=== PATIENT | female | born 1985 | race Caucasian/White ===

== ENCOUNTER 2017-08-12 08:32 | Emergency (ER) | payer OTHER ==
[2017-08-12 08:42] VITALS: BP 120/83; PULSE 92; TEMP 98; BMI 22.2
--- NOTE | 2017-08-12 09:25 | PDOC ---
History of Present Illness - General Chief Complaint: Bite Stated Complaint: CAT BITE Time Seen by Provider: 08/12/17 09:04 History Source: Patient Exam Limitations: No Limitations - History of Present Illness Initial Comments: 08/12/17 15:15 My chief complaint: Cat bite left index finger History of present illness: Patient is a 32 year old female with no significant medical history here today sent from the animal [facility] due to having a cat bite left index finger at 5 AM today. Patient reports that she is up-to-date with tetanus. Patient has a superficial puncture wound to her left proximal dorsal index finger that she washed out with antibacterial soap and water thoroughly. 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 Patient denies any difficulty bending her left index finger. Occurred: reports: this morning Severity: reports: mild Pain Location: reports: upper extremity (rt. index finger) Method of Injury: Yes: other (cat bite ) Modifying Factors: improves with: None Loss of Consciousness: no loss of consciousness Associated Symptoms (Fall): denies symptoms Past History - Past Medical History Allergies/Adverse Reactions: Allergies Allergy/AdvReac Type Severity Reaction Status Date / Time No Known Allergies Allergy Verified 08/12/17 08:35 Home Medications: Ambulatory Orders Amoxicillin - [Amoxicillin 875mg Tablet -] 875 mg PO BID #14 tab 08/12/17 Asthma: Yes COPD: No - Suicide/Smoking/Psychosocial Hx Smoking History: Never smoked Hx Alcohol Use: Yes (SOCIAL) Drug/Substance Use Hx: No Review of Systems - Review of Systems Able to Perform ROS?: Yes Constitutional: No: Symptoms Reported HEENTM: No: Symptoms Reported Respiratory: No: Symptoms reported Cardiac (ROS): No: Symptoms Reported ABD/GI: No: Symptoms Reported : No: Symptoms Reported Musculoskeletal: No: Symptoms Reported Integumentary: Yes: Other (tiny puncture wound rt. index proximal aspect dorsal ) Neurological: No: Symptoms reported *Physical Exam - Vital Signs Last Vital Signs Temp Pulse Resp BP Pulse Ox 98.0 F 92 H 20 120/83 98 08/12/17 08:33 08/12/17 08:33 08/12/17 08:33 08/12/17 08:33 08/12/17 08:33 - Physical Exam General Appearance: Yes: Appropriately Dressed Comments:: 08/12/17 09:22 radial pulse 4 + rt/ Extremity: positive: Normal Capillary Refill, Normal Range of Motion (rt. index finger ). negative: Normal Inspection, Tender Integumentary: positive: Other (rt. index puncture penpoint size proxima dorsal aspect superficial ) Neurologic: positive: Respond to painful stimul (rt. index finger ) Procedures - Consent Consent obtained: From Patient - Additional Procedures Progress: 08/12/17 15:19 Thoroughly irrigated left index finger with normal saline 0.9% Band-Aid applied Medical Decision Making - Medical Decision Making 08/12/17 15:18 Patient is a 32 year old female with no significant medical history here today sent from the animal specialty [facility] due to having a cat bite left index finger at 5 AM today. Patient reports that she is up-to-date with tetanus. Patient has a superficial puncture wound to her left proximal dorsal index finger that she washed out with antibacterial soap and water thoroughly. 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 Patient denies any difficulty bending her left index finger. 'left index finger cat bite PLAN: Her of cat called she reports that cat was vaccinated for rabies 3 years ago last time however never leaves the house is a house cat Will discharge patient on Augmentin 875/125 twice a day for 7 days 08/12/17 15:19 [facility] health form completed *DC/Admit/Observation/Transfer Diagnosis at time of Disposition: Cat bite of index finger Qualifiers: Encounter type: initial encounter Qualified Code(s): S61.258A - Open bite of other finger without damage to nail, initial encounter - Discharge Dispostion Disposition: HOME Condition at time of disposition: Stable - Prescriptions Prescriptions: Amoxicillin - [Amoxicillin 875mg Tablet -] 875 mg PO BID #14 tab - Referrals - Patient Instructions Additional Instructions: Cleanse wound on right index finger twice daily with antibacterial soap and water do not apply any bacitracin or Neosporin ointment and cover with Band-Aid when out of the home let air out at night when sleeping Follow-up with your primary care provider within the next few days Return to emergency room if any increased redness of area or swelling or any fever or any discharge from wound Patient voiced understanding of discharge instructions and all questions were answered - Post Discharge Activity Forms/Work/School Notes: Back to Work
== END 2017-08-12 09:35 | disposition home or self-care (01) ==
LOC: JERFT 08:32 → JER 08:32 → JERFT 09:32
DX: S60.471A Other superficial bite of left index finger, initial encounter (principal); W55.01XA Bitten by cat, initial encounter; Y93.K9 Activity, other involving animal care; Y92.89 Other specified places as the place of occurrence of the external cause; Y99.0 Civilian activity done for income or pay
CPT/HCPCS: 99281-25